=== PATIENT | female | born 2000 | race African-American/Black ===

== ENCOUNTER 2020-08-28 18:00 | Emergency (ER) | payer OTHER, SELFPAY ==
[2020-08-28 18:18] VITALS: BP 106/72; PULSE 95; RESP 16; TEMP 36.6; O2SAT 100; BMI 20.5
[2020-08-28 18:47] LABS: COVID19 -Nasal RAPID Negative (Negative)
--- NOTE | 2020-08-28 19:17 | ED_ITS ---
HPI - Recheck/Abnormal Lab/Rx <JULEE Martin - Last Filed: 08/28/20 19:23> General Chief Complaint: Recheck/Abnormal Lab/Rx Stated Complaint: SENT TO GET COVID TEST DONE Time Seen by Provider: 08/28/20 18:54 Source: patient Mode of arrival: Family Vehicle Limitations: no limitations History of Present Illness HPI narrative: The patient is a 20 year female nonsmoker who denies pertinent medical history presents with a chief complaint of needing a coronavirus test. She denies any cough shortness of breath fever or congestion or any other symptoms. However she works for the [employer] and has to fly package to [place]. She requires a negative test before going to [place] for the . No known specific contacts, patient is wearing a mask and states she is being careful in public with masks and hand washing. Related Data Allergies Allergy/AdvReac Type Severity Reaction Status Date / Time No Known Drug Allergies Allergy Verified 08/28/20 18:21 Review of Systems <JULEE Martin - Last Filed: 08/28/20 19:23> Review of Systems Narrative: GENERAL: Denies chills, fatigue, malaise, fever, sweats. HEENT: Denies sinus pain, ear pain, sore throat, difficulty swallowing, dizziness. RESPIRATORY: Denies dyspnea, cough, wheezing, hemoptysis, sputum. CARDIOVASCULAR: Denies chest pain, palpitations, orthopnea, edema, GASTROINTESTINAL: Denies nausea, vomiting, abdominal pain, diarrhea, co nstipation, melena. : Denies dysuria, frequency, incontinence, hematuria, urinary retention. MUSCULOSKELETAL: denies weakness, joint pain, or bony pain SKIN: Denies rash, skin lesions, or other NEUROLOGIC: Denies weakness, headache, numbness, change in speech, confusion, seizures, incoordination. PSYCHIATRIC: No concerning psychosocial issues. 12 point review of systems is negative except for those stated above Patient History <JULEE Martin - Last Filed: 08/28/20 19:23> Social History Smoking Status: Never smoker Smoking Status: Never smoker alcohol intake frequency: holidays/special occasions only Substance Use Type: does not use Exam <JULEE Martin - Last Filed: 08/28/20 19:23> Narrative Exam Narrative: GENERAL: This is a well-nourished, well-developed patient, in no acute distress HEAD: Atraumatic. Normocephalic. No temporal or scalp tenderness. EYES: Pupils equal round and reactive. Extraocular motions intact. No scleral icterus. No injection or drainage. ENT: Nose without bleeding, purulent drainage or septal hematoma. Wearing a mask. Airway patent. NECK: Trachea midline. No JVD or lymphadenopathy. Supple, nontender, no meningeal signs. CARDIOVASCULAR: Regular rate and rhythm RESPIRATORY: Clear to auscultation. Breath sounds equal bilaterally. No wheezes, rales, or rhonchi. No cough. No increased respiratory effort. No accessory muscle use. EXTREMITIES: Using all extremities equally. NEURO: AOx3. SKIN: No rash or erythema on visible skin Initial Vital Signs Initial Vital Signs: Vital Signs Temperature 97.8 F 08/28/20 18:18 Pulse Rate 95 H 08/28/20 18:18 Respiratory Rate 16 08/28/20 18:18 Blood Pressure 106/72 08/28/20 18:18 Pulse Oximetry 100 08/28/20 18:18 <Johan Shay MD - Last Filed: 08/28/20 23:09> Initial Vital Signs Initial Vital Signs: Vital Signs Temperature 97.8 F 08/28/20 18:18 Pulse Rate 95 H 08/28/20 18:18 Respiratory Rate 16 08/28/20 18:18 Blood Pressure 106/72 08/28/20 18:18 Pulse Oximetry 100 08/28/20 18:18 Scores <JULEE Martin - Last Filed: 08/28/20 19:23> GCS [place] coma scale eye opening: Spontaneous [place] coma scale verbal response: Orientated [place] coma scale motor response: Obey commands [place] coma scale total score: 15 Course <JULEE Martin - Last Filed: 08/28/20 19:23> Orders Ordered: ED Orders 08/28/20 18:22 COVID19 -ED/INPAT/OR/L&D Stat Vital Signs Vital signs: Vital Signs - 8 hr 08/28/20 18:18 Temperature 97.8 F Pulse Rate 95 H Respiratory Rate 16 Blood Pressure 106/72 Pulse Oximetry 100 <Johan Shay MD - Last Filed: 08/28/20 23:09> Orders Ordered: ED Orders 08/28/20 18:22 COVID19 -ED/INPAT/OR/L&D Stat Vital Signs Vital signs: Vital Signs - 8 hr 08/28/20 18:18 Temperature 97.8 F Pulse Rate 95 H Respiratory Rate 16 Blood Pressure 106/72 Pulse Oximetry 100 MDM - Recheck/Abnormal Lab/Rx <Gabriela WaiteCLAUDIA urbano- - Last Filed: 08/28/20 19:23> Lab Data Labs: Lab Results 08/28/20 Range/Units 18:22 COVID-19 PCR Negative (Negative) MDM Narrative Medical decision making narrative: The patient is a 20-year-old female requesting a coronavirus test for transport. She tests negative. She has no symptoms. I discussed at length the importance of follow-up with primary care provider if needed and coming back to the ER for any acute concerns. Patient provided with negative coronavirus test results. No questions or concerns upon discharge states understanding of return precautions as well as follow-up care. <Johan Shay MD - Last Filed: 08/28/20 23:09> Lab Data Labs: Lab Results 08/28/20 Range/Units 18:22 COVID-19 PCR Negative (Negative) Discharge Plan Departure Patient Disposition: Home Clinical Impression: Encounter for laboratory testing for COVID-19 virus Discharge Date/Time: 08/28/20 19:30 Instructions: Coronavirus Disease 2019, Can COVID-19 be prevented? Activity Restrictions/Additional Instructions: Thank you for trusting us with your care today. As discussed, your test resulted negative for coronavirus. Please monitor for any coronavirus symptoms such as cough, fever etcetera Please continue to wash your hands and wear a mask Please come back to the emergency department for any acute concerns. Please follow-up with primary care provider if needed. Referrals: [facility] [Provider Group] <Johan Shay MD - Last Filed: 08/28/20 23:09> Cosign ED Attending Cosignature Attestation: I was immediately available in the department for consultation. This documentation has been reviewed and I agree with assessment and plan. Supervised by Johan Shay MD
== END 2020-08-28 19:30 | disposition home or self-care (01) ==
PROVIDERS: Emergency Medicine; Emergency Provider Nurse Practitioner Family
DX: Z11.59 Encounter for screening for other viral diseases (principal)
CPT/HCPCS: 87635; 99281; 99282